=== PATIENT | male | born 1940 | race Caucasian/White ===

== ENCOUNTER 2024-09-21 12:44 | Emergency (ER) | payer MEDICARE ==
[~2024-09-21] VITALS: Ht 180.3 cm; Wt 66.2 kg
[2024-09-21 12:51] VITALS: TEMP 97.8
--- NOTE | 2024-09-21 14:51 | RADIOLOGY REPORT ---
CLINICAL INDICATION: HAND PAIN TECHNIQUE: DI HAND, COMPLETE (3VW MIN) Comparison: None FINDINGS/IMPRESSION: : There is no evidence of acute fracture or dislocation. Soft tissues are unremarkable. Osteopenia.
[2024-09-21] MEDS: LIDOcaine 1% 30ml preserv. free vial IJ STA (15:30)
[2024-09-21 17:40] VITALS: BP 162/56
--- NOTE | 2024-09-21 18:13 | Physician Documentation ---
History of Present Illness ~ Chief Complaint: Mechanical Fall Stated Complaint: FALL HAND LAC Time Seen by MD: 14:45 Primary Medical Doctor: tyrone Mode of Arrival: POV HPI Patient is an 84-year-old male that reports to the emergency department today for evaluation of an injury sustained to his left hand after a mechanical fall while walking his dog earlier today. Denies a any loss of consciousness during the fall. Reports that he has hit his head on the left side slightly just an abrasion did not hit his head hard. Patient denies any head neck or back pain at this time. Tetanus within 5 Years?: Yes Medication Reconciliation Allergies: Coded Allergies: Penicillins (Verified Allergy, Severe, RASH AND SWELLING, 09/21/24) Review of Systems ROS As stated above in the HPI, otherwise all systems are reviewed and negative. Physical Exam Vital Signs: Temperature: 97.8, Source: Oral, Heart Rate: 60, Respiratory Rate: 18, BP: 162/56, Pulse Oximetry: 96, Weight: 66.200 Oxygen Flow Rate: 0 Physical Exam VITALS: Reviewed and as above. GENERAL: Alert, no apparent distress. HEENT: Normocephalic, atraumatic, PERRL, EOMI, dry mucosa, no erythema RESPIRATORY: Lungs clear, normal breath sounds, no respiratory distress. CHEST: No accessory muscle use, no retractions CV: Regular rate, rhythm, no edema, no murmur, No: JVD GI: Soft, non-tender, bowels sounds present, no rebound, guarding, or rigidity BACK: No CVA tenderness, or swelling MUSCULOSKELETAL laceration to the left palmar aspect of the hand, SKIN: Warm and dry, no rash, laceration to the palmar aspect of the left hand, edema noted NEURO: Oriented x4, No motor or sensory deficit PSYCH: Normal mood and affect, no agitation Progress Results/Orders Results/Orders Completed Orders - JOBY STARK [employer] Lidocaine 1% 30ml Vial (Xylocaine 1% Via (09/21/24 15:30) Acetaminophen 325mg Tablet (Tylenol Tabl (09/21/24 16:35) Medications Received in ER Medications (Trade) Dose Ordered Sig/Yvon Route PRN Reason Start Time Stop Time Status Last Admin Dose Admin (Tylenol tablet) 650 mg ONCE ONCE PO 09/21/24 16:35 8/16/25 16:36 DC 09/21/24 16:36 650 MG Vital Signs 09/21/24 09/21/24 09/21/24 09/21/24 12:51 14:21 14:21 17:40 Temp 97.8 Pulse 76 64 60 Resp 16 16 18 18 B/P (MAP) 172/71 151/60 (90) 162/56 (91) Pulse Ox 98 96 96 O2 Flow Rate 0 0 Medical Decision Making Findings Wound inspected under direct bright light with good visualization. Area with linear laceration across soft tissue through adipose without exposure of muscle belly or tendon_. No overt foreign body. Area hemostatic. Neurovascular exam congruent with above. Area extensively irrigated with sterile normal saline under pressure. Laceration repaired in simple fashion as below (please see procedure note for further details). Patient tolerated procedure well and neurovascular exam intact and unchanged post repair with intact distal pulses and cap refill_. Cautious return precautions discussed w/ full understanding. Wound care discussed. Prompt follow up with primary care physician discussed and return for suture removal in days. Ten sutures placed in the dorsal aspect of the left hand without complication. Patient appropriate lead numbed with lidocaine prior to flushing the wound and prior to suturing the wound. Patient has been instructed to return to have stitches removed at 10 days to his primary care provider. Patient has been educated on signs of infection and went to call. Patient will return to the emergency department if he has any worsening of his current symptoms or any additional concerning symptoms that we discussed here today. Differential Dx:Considerations: Include: Closed head injury, Cardiac injury, Fracture(s), Intraabdominal injury, Pneumothorax, Cerebral contusion, Pulmonary contusion, Spine injury, Tracheal injury, Urological injury, Vascular injury, Abrasion(s), Contusion(s), Foreign body(s), Hematoma(s), Laceration(s), En cephalopathy, Other Departure Disposition: HOME / SELF CARE / HOMELESS Impression: Primary Impression: Fall Additional Impressions: Hand laceration Pain Condition: Stable Discharge Instructions: Facial Laceration, Sutured Wound Care Additional Instructions: Wound inspected under direct bright light with good visualization. Area with linear laceration across soft tissue through adipose without exposure of muscle belly or tendon_. No overt foreign body. Area hemostatic. Neurovascular exam congruent with above. Area extensively irrigated with sterile normal saline under pressure. Laceration repaired in simple fashion as below (please see procedure note for further details). Patient tolerated procedure well and neurovascular exam intact and unchanged post repair with intact distal pulses and cap refill_. Cautious return precautions discussed w/ full understanding. Wound care discussed. Prompt follow up with primary care physician discussed and return for suture removal in days. Ten sutures placed in the dorsal aspect of the left hand without complication. Patient appropriate lead numbed with lidocaine prior to flushing the wound and prior to suturing the wound. Patient has been instructed to return to have st itches removed at 10 days to his primary care provider. Patient has been educated on signs of infection and went to call. Patient will return to the emergency department if he has any worsening of his current symptoms or any additional concerning symptoms that we discussed here today. Referrals: NO PRIMARY CARE PROVIDER (PCP) Comments Wound inspected under direct bright light with good visualization. Area with linear laceration across soft tissue through adipose without exposure of muscle belly or tendon_. No overt foreign body. Area hemostatic. Neurovascular exam congruent with above. Area extensively irrigated with sterile normal saline under pressure. Laceration repaired in simple fashion as below (please see p rocedure note for further details). Patient tolerated procedure well and neurovascular exam intact and unchanged post repair with intact distal pulses and cap refill_. Cautious return precautions discussed w/ full understanding. Wound care discussed. Prompt follow up with primary care physician discussed and return for suture removal in days. Ten sutures placed in the dorsal aspect of the left hand without complication. Patient appropriate lead numbed with lidocaine prior to flushing the wound and prior to suturing the wound. Patient has been instructed to return to have stitches removed at 10 days to his primary care provider. Patient has been educated on signs of infection and went to call. Patient will return to the emergency department if he has any worsening of his current symptoms or any additional concerning symptoms that we discussed here today. Education Educated: Patient Educated regarding: diagnosis, treatment, need for follow up Signature Scribe Signature: A Attestation: Scribed for Joby Stark by DARIN Wood . 09/21/24 18:13 JOBY STARK Sep 21, 2024 18:13
[2024-09-21 18:18] VITALS: PULSE 75; RESP 12; O2SAT 98
== END 2024-09-21 18:22 | disposition home or self-care (01) ==
LOC: ER 12:45
DX: S61.412A Laceration without foreign body of left hand, initial encounter (principal); Z88.0 Allergy status to penicillin; W19.XXXA Unspecified fall, initial encounter; Y93.K1 Activity, walking an animal; Y92.89 Other specified places as the place of occurrence of the external cause; Y99.8 Other external cause status
CPT/HCPCS: 12001; 12002; 73130; 99283; A6258; A6449